=== PATIENT | male | born 1960 | race Asian ===

== ENCOUNTER → 2024-09-20 06:53 | Outpatient (REF) | payer BC, SELFPAY | LOC: MRI 06:53 | PROVIDERS: ATTENDING PHYSICIAN Physician Assistant Medical | DX: M25.511 Pain in right shoulder (principal) | CPT/HCPCS: 73221 ==

== ENCOUNTER 2024-10-14 06:20 | Day surgery (SDC) | payer BC, SELFPAY ==
[2024-10-05 09:00] LABS: Hematocrit 40.4 % (39.0-52.0); Hemoglobin 12.8 g/dL (13.0-18.0); Mean Corp Hgb Conc. 31.7 g/dL (33.0-37.0); Mean Corpuscular Hgb 27.4 pg (27.0-31.0); Mean Corpuscular Volume 86.5 fL (80.0-94.0); Mean Platelet Volume 10.8 fL (7.4-10.4); Platelet Count 213 10^3/uL (130-400); Red Blood Cell Count 4.67 10^6/uL (4.70-6.10); Red Cell Dist. Width 14.5 % (11.5-14.5); White Blood Cell Count 4.6 10^3/uL (4.8-10.8)
[2024-10-05 10:06] LABS: Blood Urea Nitrogen 15 mg/dl (9-20); Calcium 9.3 mg/dl (8.4-10.2); Carbon Dioxide 29 mmol/L (22-30); Chloride 105 mmol/L (98-107); Glucose 117 mg/dl (70-99); Potassium 4.4 mmol/L (3.5-5.1); Sodium 140 mmol/L (135-145); eGFR > 60.00
[2024-10-05 10:57] LABS: % Basophils 0.9 % (0-2); % Eosinophils 3.3 % (0-6); % Immature Granulocytes 0.4 % (0-0.5); % Lymphocytes 51.6 % (20.5-51.1); % Monocytes 12.9 % (1.7-9.3); % Neutrophils 30.9 % (42.2-75.2); Absolute Eosinophils 0.2 10^3/uL (0-0.7); Absolute Lymphocytes 2.4 10^3/uL (1.2-3.4); Absolute Monocytes 0.6 10^3/uL (0.1-0.6); Absolute Neutrophils 1.4 10^3/uL (1.4-6.5); Nucleated Red Blood Cells % 0 % (-)
[2024-10-05 13:35] VITALS: BMI 29.4
[2024-10-14] VITALS (7 sets, daily range): BP systolic 138–155; BP diastolic 79–92; BMI 29.4
[2024-10-14] MEDS: NORMOSOL-R/PLASMALYTE-A 1000 IV (08:44)
[2024-10-14] MEDS: TYLENOL 1000 MG PO (08:44)
[2024-10-14] MEDS: CELEBREX 200 MG PO (08:44)
== END 2024-10-14 12:51 | disposition home or self-care (01) ==
LOC: SDS 06:20
PROVIDERS: ATTENDING PHYSICIAN Orthopaedic Surgery
DX: M75.101 Unspecified rotator cuff tear or rupture of right shoulder, not specified as traumatic (principal); M19.011 Primary osteoarthritis, right shoulder
CPT/HCPCS: 29827; 36415; 80048; 85025; 93005; C1713